=== PATIENT | female | born 1930 | race Caucasian/White ===

== ENCOUNTER 2016-10-18 20:11 | Inpatient (IN) | payer MEDICARE, BC ==
[~2016-10-18] VITALS: Ht 165.1 cm; Wt 74.8 kg
--- NOTE | 2016-10-19 03:30 | ER ---
ADMIT: 10/18/2016 RM/LOC: 503 [facility] MR#: [id number] [address] [address] KOKO SMITH [address] [place] [address] Emergency Room Report SEX: F AGE: 86 : 1930 DATE: 10/18/2016 CHIEF COMPLAINT: Fall. HISTORY OF PRESENT ILLNESS: The patient is an 86-year-old female, who was sleeping on her couch when the phone rang and she reached to get and fell injuring her right knee. Denies any loss of conscious, neck pain, or focal deficit. Crawled to the phone and called her son, who was unable to get her into a sitting position, 911 was called. Placed her on the cot. The patient declined any pain medicine. PAST MEDICAL HISTORY: ILLNESSES: Paroxysmal atrial tachycardia, hypertension, hyperlipidemia, peptic ulcer disease with GI bleed. CVA treated with thrombolytics in 2014, seizure disorder, depression, COPD, hypothyroidism, herpes encephalitis, breast cancer status post lumpectomy, osteoporosis, bladder cancer transitional cell. OPERATIONS: Multiple cystoscopies and tumor fulgurations, cataract extraction, left mastectomy, left femur fracture ORIF, partial thyroidectomy, colon polypectomy. ALLERGIES: SULFA, CIPRO, KEFLEX. MEDICATIONS: Please see nurse's MAR. SOCIAL HISTORY: Past smoker. No illicit drugs or alcohol. FAMILY HISTORY: Negative per chart review. REVIEW OF SYSTEMS: A 12-point review of systems negative for all other systems, illnesses, or operations except as outlined above. PHYSICAL EXAMINATION: VITAL SIGNS: Temp 96.9, pulse 80, respirations 18, BP 159/59, SaO2 of 95% on room air. GENERAL: Anxious, moderate distress, nontoxic, non-diaphoretic without jaundice or icterus. HEENT: Normocephalic. No evidence of epistaxis, rhinorrhea, or otorrhea. NECK: Supple without lymphadenopathy or thyromegaly. CHEST: Clear. Breath sounds equal without rales, rhonchi, or wheeze. HEART: Regular rate and rhythm without murmur, gallop, or edema. ABDOMEN: Soft, nontender, nondistended without mass or megaly. Bowel sounds hypoactive. EXTREMITIES: No evidence of Homans sign, synovitis, or dermatitis. Moderate effusion right knee, tender anteriorly and posteriorly. Patella intact. Right hip able to flex and internally and externally rotate without pain; however, when you touch the greater trochanter, she winces in pain. No pain with compression of the pelvis. BACK: Erect. No CVA tenderness. NEURO: EOMI, PERRLA. No evidence of drift, dysarthria, or ataxia. Gait not ADMIT: 10/18/2016 RM/LOC: 503 [facility] MR#: [id number] [address] [place] [address] KOKO SMITH [address] [place] [address] Emergency Room Report SEX: F AGE: 86 : 1930 assessed. MENTAL STATUS: Alert, oriented, and cooperative without delusions, hallucinations, or abnormal thought content. MEDICAL DECISION MAKING: EKG showed sinus rhythm with left bundle-branch block, unchanged from April 18, 2015. Chest x-ray unremarkable. Normal CBC, CMP, troponin. UA showed 1+ leukocyte esterase with 25 WBCs. X-ray right hip showed moderate arthritic change; however, cannot rule out incomplete femoral neck fracture. Right knee showed moderate degenerative change, more so on the lateral compartment, but no acute findings. The patient was given Tylenol for pain, ice since she is unable to bear weight, admit. Suggest MRI in the morning if patient is still having considerable pain and notified Dr. Rivers of admission, who agreed and gave orders to nursing staff. DIAGNOSES: 1. Right hip and knee pain due to mechanical fall. 2. 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 3. Previous cerebrovascular accident with no significant residual deficits, status post tPA in 2014. 4. Hypertension. 5. Hyperlipidemia. 6. Peptic ulcer disease with previous gastrointestinal bleed. RECOMMENDATION: Admit Med/Surg for Dr. Haq. ADMISSION/DISCHARGE CONDITION: Stable. Patient is a DNR/DNI. John Grullon MD/ modl JOB #: [id number] CC: Sancho Haq MD, Attending Physician Sancho Haq MD, Family Physician Sancho Haq MD
[2016-10-24] MEDS ORDERED: COLACE-DPS100 MG PO ×2 (18:55→18:57)
[2016-10-24] MEDS ORDERED: CRESTOR10 MG PO (18:55)
[2016-10-24] MEDS ORDERED: CLARITIN DPS10 MG PO (18:55)
[2016-10-24] MEDS ORDERED: PROZAC DPS20 MG PO (18:55)
[2016-10-24] MEDS ORDERED: MACROBID100 MG PO (18:55)
[2016-10-24] MEDS ORDERED: PROTONIX40 MG PO (18:55)
[2016-10-24] MEDS ORDERED: TYLENOL DPS325 MG PO (18:56)
[2016-10-24] MEDS ORDERED: PRESERVISION A1 EAC2 PO (18:56)
[2016-10-24] MEDS ORDERED: TOPROL XL DPS25 MG PO (18:56)
[2016-10-24] MEDS ORDERED: REMERON DPS15 MG PO (18:56)
[2016-10-24] MEDS ORDERED: TRILEPTAL150 MG PO (18:56)
[2016-10-24] MEDS ORDERED: SYNTHROID DPS0.05 MG PO (18:56)
[2016-10-24] MEDS ORDERED: VITAMIN D31000 UNIT PO (18:57)
[2016-10-24] MEDS ORDERED: CATAPRES-DPS0.1 MG PO (18:57)
[2016-10-24] MEDS ORDERED: ZESTRIL DPS2.5 MG PO (18:57)
[2016-10-24] MEDS ORDERED: OXY IR DPS5 MG PO (18:58)
[2016-10-24] MEDS ORDERED: MAALOX DPS30 ML PO (18:58)
--- NOTE | 2016-10-25 11:32 | CO ---
ADMIT: 10/19/2016 RM/LOC: 503 [facility] MR#: [id number] [address] [address] KOKO SMITH [address] [place] [address] Consultation SEX: F AGE: 86 : 1930 Corrected: 10/20/2016 1256 njv DATE OF CONSULTATION: 10/20/2016 ATTENDING PHYSICIAN: Sancho Haq CONSULTING PHYSICIAN: Debra Levin MD CHIEF COMPLAINT: Right hip and knee and pain. HISTORY OF PRESENT ILLNESS: This is an 86-year-old female, who I am seeing at the request of Dr. Haq for complaint of right hip and knee pain. She was at home on the , which was a Thursday and napping on the couch, phone rang, and she went to answer it, she fell on her right side and had difficulty getting up. She was eventually brought to the hospital for evaluation, had x- rays of the hips and knees, which showed degenerative changes but no acute fracture. Subsequent CT scans were performed about the hip and knee showed moderate degenerative changes without obvious fracture. In the hospital, Dr. Haq requested orthopedic consultation. She has a history of arthritis off and on, symptomatic over the last few years. She did have a twisting injury several months ago according to her and her daughter, which was sore for a while but otherwise has been doing pretty well. She has a history of a left hip TFN several years ago as well. Otherwise, her knee has been pretty stable up until her fall couple of days ago. Allergies, medications, past medical history, social history, surgical history reviewed and noted in the admission H and P by Dr. Haq. They are unchanged at this time. PHYSICAL EXAMINATION: GENERAL: Otherwise, comfortable appearing 86-year-old female, in no distress. Oriented, pleasant, interactive, and answers all questions appropriately. She is quite talkative. EXTREMITIES: Exam of the right lower extremity first the hip shows the skin is intact. She has some tenderness with palpation laterally. She does move it voluntarily without significant amounts of pain, just a little bit of apprehension if she thinks I am going to manipulate anything, but when I do run her through a range of motion, she has a little bit of soreness with internal rotation, very mild external rotation. Otherwise controlled voluntarily very well. Exam of the right knee shows the skin is intact. She has one to 2+ effusion. Really, not tender or warm around the effusion proximally. She has tenderness with palpation over the medial and lateral joint line. Range of motion is comfortable with near full extension and flexion to 100 degrees. She can go through this range actively without any signs of pain, just mostly with palpation. She is stable under stress test maneuvers. No instability. Neurovascular status is intact. IMAGING: Reviewed previously obtained x-rays of the knee and hip and that show both places moderate degenerative changes. No acute signs of fracture. ADMIT: 10/19/2016 RM/LOC: 503 [facility] MR#: [id number] [address] [address] KOKO SMITH [address] [place] [address] Consultation SEX: F AGE: 86 : [address] scan of both knee and the hip and again confirmed the presence of moderate arthritic changes with osteophyte formation but without evidence of fracture in either location. ASSESSMENT: Right hip and knee contusion. PLAN: At this point, Koko does not have a limited effusion. She does very well. Moving it comfortably without symptomatic effusion. I think at this point, if we would drop the fluid off it would probably return within an hour to given the acute nature of the injury. She is really comfortable with it passively at this point. Therefore, I am going to recommend we proceed with conservative care in the form of ice, heat, and physical therapy for both as well as protected weightbearing. She can weight bear as tolerated with the use of a walker and assistance if necessary. Progress as she is able. We will follow up with her in a couple of weeks over the office and at that point, if she still has an effusion and is still having pain, we would consider aspiration and injection, but again I think if I aspirate her right now that a fluid would probably come back relatively quickly. We will see how she does with conservative care and again follow up with her outpatient in a week or two. Bharat Enrique PA-C / Debra Levin MD / prince JOB #: [id number] CC: Sancho Haq, Attending Physician Sancho Haq, Family Physician Corrected: 10/20/2016 1256 njv
--- NOTE | 2016-11-11 08:55 | HP ---
ADMIT: 10/18/2016 RM/LOC: 503 [facility] MR#: [id number] [address] [address] KOKO SMITH [address] [place] [address] History and Physical SEX: F AGE: 86 : 1930 Corrected: 10/19/2016 1526 ajf DATE OF SERVICE: CHIEF COMPLAINT: Right hip and knee pain. HISTORY OF PRESENT ILLNESS: Koko is a very nice 86-year-old female, who is well known to my service. She does have a history of herpes encephalitis and some kind of cognitive difficulties that have been quite chronic for quite some time. She actually gets along relatively well at home, however, recently was sleeping on the couch. She did hear the phone ringing, she did actually get up quickly, so she did not miss her phone call. Unfortunately, she did have a mechanical fall. She fell onto her right knee and her right hip. She was unable to get up at that time, she did have some pain, however, she was able to get one hand on two different pieces of furniture and one hand each on different pieces of furniture and went to stand up and had to twist. At that time, she felt severe pain in her right hip and her right knee. At that time, she was transitioned to the Emergency Department, was evaluated by Dr. Grullon. Did have some x-rays without clear fractures, but were concerned that potentially could miss a particular type of fracture, recommended MRI. By then admitted to my partner, Dr. Rivers, for observation. Review of her laboratories show that she does have a urinary tract infection as well, and I did review images. She is actually sitting in her room. She just got done with a shower. She is able to tell me this story and she is consistent with her story. She does have some peculiar responses to pain at time depending on if we relatively talking about them, however, even if we distract her and I attempt to manipulate her knee or her hip, she does have severe pain. So, she is I think having actually quite severe pain of this hip and knee. You cannot actually barely touch that and she does grab your hand because she is anticipating pain. Her pain is mostly just with movement. She is noted to have some effusion on that knee as well. However, she is in no severe distress. She is okay if she does not move the hip or her knee, and she is not having any particular changes in her mental status at this time. She did have her son and [id number] in from [place]. She did have a fantastic time with the recent family here, and she is a bit upset that she was doing quite well, and now she is injured. However, she is very talkative and interactive. She did not hit her head. PAST MEDICAL HISTORY: 1. Herpes encephalitis. 2. Seizure disorder. 3. Depression. 4. Hypertension. 5. Hypothyroidism. 6. Hyperlipidemia. 7. Breast cancer. 8. Osteoporosis. 9. History of bladder cancer. ADMIT: 10/18/2016 RM/LOC: 503 [facility] MR#: [id number] [facility] [address] [address] KOKO SMITH [address] [place] [address] History and Physical SEX: F AGE: 86 : 1930 10.History of left femur fracture in the past. 11.Partial thyroidectomy. 12.Colon polyps. 13.Peptic ulcer. 14.Cataract. 15.Tobacco abuse. 16.Atrial fibrillation. 17.Chronic anticoagulation. 18.History of stroke. MEDICATIONS: 1. Omeprazole. 2. Synthroid. 3. Prozac. 4. Toprol-XL. 5. Vitamin D. 6. Restoril. 7. PreserVision. 8. Colace. 9. Tylenol p.m. 10.Crestor. 11.Eliquis. 12.Keppra. 13.Multivitamin. 14.Tylenol. ALLERGIES: SULFA, CEPHALEXIN, AND CIPROFLOXACIN. FAMILY HISTORY: Not really remembering all of her family history at this time. I attempt review it, but it is noncontributory to mechanical fall and UTI. SOCIAL HISTORY: She is a nonsmoker. She is a nondrinker. She does not do drugs. She is retired. She lives by herself. She has very supportive family members to check on her multiple times daily. She is a previous smoker and has stated she does have some cognitive deficits due to herpes encephalitis, however, she does get along relatively well, and she does have recent diagnosis of some dementia as well secondary to this as well. REVIEW OF SYSTEMS: Complete review of systems reviewed per HPI. PHYSICAL EXAMINATION: VITAL SIGNS: Blood pressure 124/69, pulse 65, respiratory rate is 16, temperature is 96.5, and she is 91% on room air. GENERAL: She is alert and oriented x3. In no acute distress. HEENT: Normocephalic and atraumatic. Extraocular muscles intact. Pupils equally round and responsive to light. No nasal discharge. She does have allergic shiners. HEART: Regular rhythm and rate. ADMIT: 10/18/2016 RM/LOC: 503 [facility] MR#: [id number] [facility] [address] [address] KOKO SMITH [address] [place] [address] History and Physical SEX: F AGE: 86 : 1930 LUNGS: Clear to auscultation bilaterally. She does have some small tidal volumes. We will go ahead and have her do an incentive spirometer as well. ABDOMEN: Soft and nontender. EXTREMITIES: No clubbing or cyanosis. She does have large effusion on her right knee. Appears to be large effusion with knee flexed, sitting on the stool. She has pain with any manipulation or movement of her right knee and right hip. I cannot feel any actual physical deficits or any step-offs or anything like that, but she does have severe pain. LABORATORY DATA: White blood cells are 6.2, hemoglobin is 12.9, and platelets 194. CMP is reviewed and acceptable and unremarkable. Troponin is negative. UA; leukocyte esterase and pyuria are noted. X-ray of the hip, no clear fracture, but they can't exclude femoral neck or subcapital fractures. Knee x-ray, degeneration. Urine cultures, no growth, less than 24 hours. ASSESSMENT AND PLAN: 1. Mechanical fall. 2. Urinary tract infection. 3. Severe right hip and knee pain. 4. Hypertension. 5. Hyperlipidemia. 6. Atrial fibrillation. 7. Chronic anticoagulation. 8. History of cerebrovascular disease. 9. Herpes encephalitis. 10.History with cognitive deficits. 11.Impaired mobility. At this time, she does have pretty substantial pain in the hip and knee with inability to totally rule out fracture on x-ray. I feel it is prudent to step up level of imaging to rule out an occult fracture. The patient does have severe claustrophobia. Last brain MRIs, she did require sedation. At this time, we will go ahead and proceed to a CT scan of the hip and knee. We will make her nonweightbearing until we do actually rule out a fracture. I will maintain her home regimen. However, I will make some adjustments to the ADMIT: 10/18/2016 RM/LOC: 503 [facility] MR#: [id number] [facility] [address] [address] KOKO SMITH [address] [place] [address] History and Physical SEX: F AGE: 86 : 1930 Tylenol, placed her on a scheduled Tylenol and some low-dose p.r.n. oxycodone for pain. She will be placed on some KRISTEN hose as well. She is currently on Eliquis for her atrial fibrillation, and so I think she has adequate DVT coverage. The patient does have some real pyuria and likely urinary tract infection, so, I think it is pretty normal to cover this patient with some antibiotics. She does have some allergies, which will limit us at times, we will go ahead and place her on some Zosyn at this time. She is already on a PPI because she does have some GERD and she does wish to be a DNR/DNI. I did talk to Koko about our plans for imaging and she expresses understanding and is agreeable to this. Sancho Haq MD/ prince JOB #: [id number] CC: Sancho Haq, Attending Physician Sancho Haq, Family Physician Corrected: 10/19/2016 1526 ajf
--- NOTE | 2016-11-12 08:25 | DS ---
ADMIT: 10/19/2016 RM/LOC: 503 [facility] MR#: [id number] [address] [address] KOKO SMITH [place], [place] [address] Discharge Summary SEX: F AGE: 86 : 1930 ADMISSION DATE: 10/19/2016 DISCHARGE DATE: 10/23/2016 CONSULTATIONS: Orthopedic Surgery. FINAL DIAGNOSES: 1. Delirium resolved. 2. Anxiety improved. 3. Weakness resolved. 4. Right hip and knee pain resolved. 5. Dementia stable. REASON FOR ADMISSION: Please see H and P. However, briefly, admitted after a fall, mechanical, with hip and knee pain. HOSPITAL COURSE: Admitted to the service of [facility] under the care of myself, Sancho Haq MD. Received consultation with Orthopedic Surgery as well as further imaging. She does improve nicely with some physical therapy. Plan for discharge. However, did develop acute delirium and anxiety. Did receive further imaging of her brain with no evidence of recurrent CVA and also did have an EEG with no evidence of seizures. Has complete resolution with adjustment of her medications and discharges to a alf facility. DISPOSITION: correction facility. DISCHARGE CONDITION: Stable. DISCHARGE MEDICATIONS: See the medication reconciliation, it is reviewed and accurate. DISCHARGE INSTRUCTIONS: Discharge to a alf facility. Follow up with myself in 2 weeks' time and will have repeat laboratories as well with continued physical therapy. Discussed the plan with the patient and family, expressed understanding, and had no further questions. Thirty minutes spent on discharge activities of this patient. Sancho Haq MD/ beth JOB #: [id number] CC: Sancho Haq MD, Attending Physician Sancho Haq MD, Family Physician
--- NOTE | 2016-11-12 17:26 | EEG ---
ADMIT: 10/19/2016 RM/LOC: 503 [facility] MR#: [id number] [address] [address] KOKO SMITH [address] [place] [address] Inpatient EEG SEX: F AGE: 86 : 1930 DATE: 10/23/2016 EEG NUMBER: [id number]. This is a 21 channel digital EEG recording performed on a cooperative patient, who was awake and drowsy in various portions of the study. The study is performed using the 10/20 international electrode placement system. HISTORY OF PRESENT ILLNESS: The patient is an 86-year-old woman with history of fall. She also has a history of seizures and stroke. During wakefulness, the background activity is fairly well organized, consisting of regular and symmetrical medium amplitude activity up to 10 hertz seen posteriorly, which attenuates with eye opening. In addition, moderate amount of low-amplitude fast activity is seen anteriorly. During periods of drowsiness, there is generalized attenuation of the posterior dominant rhythm with appearance of medium amplitude 6 to 7 Hz activity seen bilaterally. There were no focal slowing nor epileptiform discharge seen in this recording. Hyperventilation was not performed due to age and history of stroke. Photic stimulation performed at 1-33 hertz frequency, elicited bilateral occipital driving response. IMPRESSION: This is normal awake and drowsy EEG recording. Normal EEG does not rule out the existence of seizure disorder. Clinical correlation is suggested. Great portion of the study is degraded by muscle motion artifact and electrode artifacts. DISPOSITION: Unchanged. Margarito Garcia MD/ prince JOB #: [id number] CC: Sancho Haq MD, Attending Physician Sancho Haq MD, Family Physician
[2016-12-19] MEDS ORDERED: ARICEPT DPS5 MG PO (14:32)
[2016-12-19] MEDS ORDERED: DULCOLAX-DPS10 MG PR (14:38)
[2016-12-19] MEDS ORDERED: HYTONE 1% DPS30 GM TP (14:38)
[2016-12-19] MEDS ORDERED: DAILY MULTIPLE1 EAC1 PO (14:39)
[2016-12-19] MEDS ORDERED: ELIQUIS2.5 MG PO (14:41)
[2016-12-19] MEDS ORDERED: BENADRYL-DPS25 MG PO (14:42)
[2016-12-19] MEDS ORDERED: LIDODERM PATCH TP (14:42)
== END 2016-10-23 16:20 | DRG 605 ==
LOC: ER 20:11 → 5MS 22:38
PROVIDERS: ADMIT Internal Medicine
DX: S70.01XA Contusion of right hip, initial encounter (principal); I48.91 Unspecified atrial fibrillation; N39.0 Urinary tract infection, site not specified; F03.90 Unspecified dementia, unspecified severity, without behavioral disturbance, psychotic disturbance, mood disturbance, and anxiety; G40.909 Epilepsy, unspecified, not intractable, without status epilepticus; J44.9 Chronic obstructive pulmonary disease, unspecified; I10 Essential (primary) hypertension; F32.9 Major depressive disorder, single episode, unspecified; E03.9 Hypothyroidism, unspecified; S80.01XA Contusion of right knee, initial encounter; F41.9 Anxiety disorder, unspecified; R53.1 Weakness; R41.0 Disorientation, unspecified; E78.5 Hyperlipidemia, unspecified; I44.7 Left bundle-branch block, unspecified; M81.0 Age-related osteoporosis without current pathological fracture; F40.240 Claustrophobia; M19.90 Unspecified osteoarthritis, unspecified site; W08.XXXA Fall from other furniture, initial encounter; Z85.3 Personal history of malignant neoplasm of breast; Z87.11 Personal history of peptic ulcer disease; Z85.51 Personal history of malignant neoplasm of bladder; Z86.73 Personal history of transient ischemic attack (TIA), and cerebral infarction without residual deficits; Z90.12 Acquired absence of left breast and nipple; Z87.891 Personal history of nicotine dependence; Z79.01 Long term (current) use of anticoagulants; Z66 Do not resuscitate